=== PATIENT | female | born 1930 | race Caucasian/White ===

== ENCOUNTER 2016-10-24 18:29 | Inpatient (IN) | payer OTHER ==
[~2016-10-24] VITALS: Ht 154.9 cm; Wt 67.0 kg
[~2016-10-24 18:29] MED LIST: ALBU1AER9 INH; ANTICRE6; CLTP PO; FLUO20CA35 PO; HYZ/50125 PO; NASAL SPRAY; OMEG10007 PO; PRLSR20 PO; SIMV40TA2 PO
--- NOTE | 2016-10-24 19:19 | EMERGENCY ROOM VISIT NOTE ---
History Report prepared by Eunice: Andrew Alexis Under the Supervision of: Dr. Kiara Kincaid M.D. First contact with patient: 18:52 Chief Complaint: RECTAL BLEEDING Stated Complaint: LOW HEMOGLOBIN,RECTAL BLEEDING,DIZZY,WEAK Nursing Triage Summary: pt daughter states she was seen at urgent care on sunday, had bleeding in her stool, dizzy and weak, hemoglobin 11.7 , today seen at pcp hemoglobin is 8, pt continues to have blood in her stool, pt usually takes asa but didnt take it today History of Present Illness The patient is an 86 year old female who presents to the Emergency Room with complaints of persistent rectal bleeding beginning three days prior to arrival. She currently rates her discomfort as a 3/10 in severity. As per daughter, the patient experienced some pressure in her lower abdomen three days ago, followed by bright red blood in the toilet and then a loose bowel movement. The daughter denies there being blood in the stool at that time. She states the following day , the patient experienced darker "clotting" blood in her stool. The daughter notes she took the patient to [facility] two days ago, in which no hemorrhoids were identified, and the patient's hemoglobin was 11.7. She states the patient had a normal day yesterday, however, the dark red rectal bleeding occurred again this morning. The patient notes she had a regular doctor's appointment today, and her blood work revealed a hemoglobin of 8. She associates weakness, dizziness, and pressure in her rectum with today's symptoms. The patient states she was advised to go to the ED if the patient began to experience worsening symptoms. She notes she had a blood transfusion many years ago. The patient states she takes a baby aspirin once a day, as well. She denies being on blood thinners or taking any other anti- inflammatories. The patient denies chest pain and shortness of breath. 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 Review of Systems See HPI for pertinent positives & negatives. A total of 10 systems reviewed and were otherwise negative. Past Medical & Surgical Medical Problems: (1) Depression (2) Dyslipidemia (3) GERD (gastroesophageal reflux disease) (4) Hypertension (5) Osteoarthritis (6) Osteoporosis Surgical Problems: (1) H/O colonoscopy (2) History of breast lump/mass excision (3) History of cataract surgery (4) S/P tonsillectomy Family History Cancer Heart disease Hypertension Social History Smoking Status: Never Smoker Marital Status: Housing Status: lives with significant other Current/Historical Medications Scheduled Aspirin (Aspirin Ec), 81 MG PO DAILY Cranberry (Vaccinium Macrocarp (Cranberry), 1 CAP PO DAILY Fluoxetine (Prozac), 20 MG PO DAILY Omeprazole (Prilosec), 20 MG PO DAILY Scheduled PRN Fluticasone Propionate (Nasal) (Flonase Allergy Relief), 1 SPRAY CHLOÉ DAILY PRN for Nasal Congestion Allergies Coded Allergies: No Known Allergies (Unverified , 03/09/04) Physical Exam Vital Signs Date Time Temp Pulse Resp B/P Pulse Ox O2 Delivery O2 Flow Rate FiO2 10/24/16 20:27 85 18 153/70 98 Room Air 10/24/16 19:12 82 10/24/16 18:53 96 Room Air 10/24/16 18:52 89 18 138/82 95 Room Air 10/24/16 18:36 36.7 87 18 170/79 95 Room Air Physical Exam Vital signs reviewed. General: Well-appearing female, in no significant distress. HEENT: No scleral icterus, PERRLA, neck supple. Atraumatic. Cardiovascular: Regular rate and rhythm, no extra sounds. Pulmonary: Clear to auscultation bilaterally, normal work of breathing. Abdomen: Soft, nontender, nondistended, positive bowel sounds. Rectal: Melanotic stool. Normal rectal mucosa. Musculoskeletal: Atraumatic, no peripheral edema. Neurologic: Patient awake alert and oriented x 3, full strength in all 4 extremities. Cranial nerves 2 through 12 grossly intact. Skin: Warm, dry, no rash Medical Decision & Procedures ER Provider Diagnostic Interpretation: X-ray results as stated below per interpretation by me and the radiologist: CHEST ONE VIEW PORTABLE HISTORY: Dizziness. GIB, weakness COMPARISON: None. FINDINGS: The heart is borderline enlarged. Mild diffuse interstitial thickening which is likely chronic. No focal lung consolidations to suggest pneumonia. No evidence for pulmonary edema. No pleural effusions. No pneumothorax. IMPRESSION: Chronic changes as described above. No acute process within the chest. Electronically signed by: Wilson Canchola M.D. 10/24/2016 8:00 PM Laboratory Results Test 10/24/16 19:34 10/24/16 19:37 10/24/16 19:38 Bedside Troponin I 0.000 ng/ml (0-0.045) Bedside Hemoglobin 9.9 g/dl (12.0-16.0) Bedside Hematocrit 29 % (37-47) Bedside Sodium 143 mEq/L (135-144) Bedside Potassium 3.8 mEq/L (3.3-5.0) Bedside Chloride 103 mEq/L (101-112) Bedside Total CO2 29 mEq/l (24-31) Bedside Blood Urea Nitrogen 22 mg/dl (7-18) Bedside Creatinine 0.7 mg/dl (0.6-1.3) Bedside Glucose (other) 101 mg/dl (70-99) Bedside Ionized Calcium (Conchis) 1.18 mmol/l (1.12-1.32) Immature Granulocyte % (Auto) 0.2 % White Blood Count 5.83 K/uL (4.8-10.8) Red Blood Count 3.57 M/uL (4.2-5.4) Hemoglobin 9.2 g/dL (12.0-16.0) Hematocrit 29.0 % (37-47) Mean Corpuscular Volume 81.2 fL (80-100) Mean Corpuscular Hemoglobin 25.8 pg (25-34) Mean Corpuscular Hemoglobin Concent 31.7 g/dl (32-36) Platelet Count 237 K/uL (130-400) Mean Platelet Volume 9.5 fL (7.4-10.4) Neutrophils (%) (Auto) 64.3 % Lymphocytes (%) (Auto) 24.0 % Monocytes (%) (Auto) 8.4 % Eosinophils (%) (Auto) 2.9 % Basophils (%) (Auto) 0.2 % Neutrophils # (Auto) 3.75 K/uL (1.4-6.5) Lymphocytes # (Auto) 1.40 K/uL (1.2-3.4) Monocytes # (Auto) 0.49 K/uL (0.11-0.59) Eosinophils # (Auto) 0.17 K/uL (0-0.5) Basophils # (Auto) 0.01 K/uL (0-0.2) Immature Granulocyte # (Auto) 0.01 K/uL (0.00-0.02) Prothrombin Time 10.0 SECONDS (9.0-12.0) Prothromb Time International Ratio 0.9 (0.9-1.1) Activated Partial Thromboplast Time 22.6 SECONDS (21.0-31.0) Partial Thromboplastin Ratio 0.9 Magnesium Level 2.2 mg/dl (1.8-2.4) Iron Level 28 mcg/dl (35-150) Total Iron Binding Capacity 347 mcg/dl (250-450) Ferritin 14.0 ng/ml (8.0-388.0) Total Creatine Kinase 116 U/L (26-192) Creatine Kinase MB 2.6 ng/ml (0.5-3.6) Creatine Kinase MB Ratio 2.2 (0-3.0) Thyroid Stimulating Hormone (TSH) 2.290 uIu/ml (0.300-4.500) Laboratory results per my review. Medications Administered Medications (Trade) Dose Ordered Sig/Michelle Route Start Time Stop Time Status Last Admin Dose Admin Pantoprazole Sodium 80 mg/ Dextrose 120 ml @ 400 mls/hr NOW IV 10/24/16 20:15 10/24/16 22:02 DC 10/24/16 20:56 400 MLS/HR Sodium Chloride (Nss 1000ml) 1,000 ml @ 125 mls/hr Q8H STAT IV 10/24/16 20:18 10/24/16 22:02 DC 10/24/16 20:28 125 MLS/HR ECG Indication: other (rectal bleeding) Rate (beats per minute): 85 Rhythm: normal sinus Findings: no acute ischemic change, no ectopy ED Course 1951: Past medical records reviewed. The patient was evaluated in room C3. A complete history and physical examination was performed. 2015: Ordered Pantoprazole Sodium 80 mg/ Dextrose 120 ml @ 400 mls/hr IV. 2017: I spoke to Michelle Christopher (Internal Medicine) about the patient's case, and she will follow the patient for further evaluation. 2018: Ordered Sodium Chloride 1,000 ml @ 125 mls/hr IV. 2019: Reevaluated and updated the patient at this time. Medical Decision Differential diagnosis: Etiologies such as diverticulosis, AVM, coagulopathy, colitis, inflammatory bowel disease, malignancy, Xuan-Clinton tear, esophagitis, peptic ulcer disease , variceal bleed, gastritis, epistaxis, fissure, hemorrhoids, as well as others were entertained. This patient was evaluated and appeared to be in no significant distress. IV access was obtained and laboratory work was drawn. The patient was placed on the color television console monitor and found to be in a normal sinus rhythm. Physical examination reveals melanotic guaiac positive stools. The patient's blood counts revealed a hemoglobin of 9. Patient's vital signs have remained stable. She was given IV Protonix. CT scan of the abdomen and pelvis was ordered with IV and oral contrast. 2 units of PRBCs have been ordered to hold. I did discuss the case with the hospitalist service. They will evaluate the patient for further management. Consults Time Called: 2012 Consulting Physician: Michelle Christopher (Internal Medicine) Returned Call: 2016 I spoke to Michelle Christopher (Internal Medicine) about the patient's case, and she will follow the patient for further evaluation. Impression Primary Impression: GI bleed Scribe Attestation The scribe's documentation has been prepared under my direction and personally reviewed by me in its entirety. I confirm that the note above accurately reflects all work, treatment, procedures, and medical decision making performed by me. Departure Information Dispostion Being Evaluated By Hospitalist (Michelle Christopher (Internal Medicine)) Referrals No Doctor, Assigned (PCP) Problem Qualifiers Primary Impression: GI bleed GI bleed type/associated pathology: gastritis Gastritis type: acute gastritis Qualified Codes: K29.01 - Acute gastritis with bleeding
[2016-10-24 19:49] LABS: BASO % 0.2 %; BASO ABS # 0.01 K/uL (0-0.2); COMPLETE YES; EOS % 2.9 %; IG% 0.2 %; MEAN CELL VOLUME 81.2 fL (80-100); MEAN CORPUSCULAR HEMOGLOBIN 25.8 pg (25-34); MEAN CORPUSCULAR HGB CONC 31.7 g/dl (32-36); MEAN PLATELET VOLUME 9.5 fL (7.4-10.4); MONO % 8.4 %; NEUT % 64.3 %; PLATELET COUNT 237 K/uL (130-400); RED BLOOD COUNT 3.57 M/uL (4.2-5.4); WHITE BLOOD COUNT 5.83 K/uL (4.8-10.8)
[2016-10-24 19:51] LABS: ISTAT CREATININE 0.7 mg/dl (0.6-1.3); ISTAT HEMOGLOBIN 9.9 g/dl (12.0-16.0); ISTAT IONIZED CALCIUM 1.18 mmol/l (1.12-1.32)
[2016-10-24] MEDS ORDERED: ASPI81TA28 PO (19:56)
[2016-10-24] MEDS ORDERED: FLUT0.15 NAE (19:56)
[2016-10-24] MEDS ORDERED: CRAN500C2 PO (19:56)
[2016-10-24 19:59] LABS: INR 0.9 (0.9-1.1); PARTIAL THROMBOPLASTIN RATIO 0.9
--- NOTE | 2016-10-24 20:02 | DIAGNOSTIC IMAGING REPORT ---
CHEST ONE VIEW PORTABLE HISTORY: Dizziness. GIB, weakness COMPARISON: None. FINDINGS: The heart is borderline enlarged. Mild diffuse interstitial thickening which is likely chronic. No focal lung consolidations to suggest pneumonia. No evidence for pulmonary edema. No pleural effusions. No pneumothorax. IMPRESSION: Chronic changes as described above. No acute process within the chest. Electronically signed by: Wilson Canchola M.D. 10/24/2016 8:00 PM Dictated Date/Time: 10/24/2016 7:59 PM
[2016-10-24 20:08] LABS: CALCIUM 8.4 mg/dl (8.5-10.1); CREATININE 0.67 mg/dl (0.60-1.20); MAGNESIUM 2.2 mg/dl (1.8-2.4)
[2016-10-24 20:12] LABS: CKMB/CK RATIO 2.2 (0-3.0)
[2016-10-24] MEDS ORDERED: PANTOprazole INJ 80 MG in DEXTROSE 5% 100ML 100 ML IV SCH (20:15)
[2016-10-24] MEDS ORDERED: SODIUM CHLORIDE 0.9% 1000ML 1,000 ML IV STA (20:18)
[2016-10-24] MEDS ORDERED: OPTIRAY 320 IV PRN (20:30)
[2016-10-24 20:56] LABS: THYROID STIMULATING HORMONE 2.29 uIu/ml (0.300-4.500)
[2016-10-24] MEDS ORDERED: ONDANSETRON INJ 2 MG/ML 2 ML VIAL IV PRN (21:00)
[2016-10-24] MEDS ORDERED: FLUTICASONE PROPIONATE NA SPR 16 GM BTL NAE PRN (21:15)
--- NOTE | 2016-10-24 21:16 | History and Physical ---
History & Physical Date & Time of Service: Oct 24, 2016 at 21:04 Chief Complaint: Low Hemoglobin,Rectal Bleeding,Dizzy,Weak Primary Care Physician: Holden Thornton M.D. History of Present Illness Source: patient, family, clinic records, hospital records This is a healthy 86 year old female with past medical hx of Asthma/HTN presents to the Emergency Room with episodes of dark stool started 3 days back ( since Sat ) As per pt's daughter, pt was having pressure like symptoms /cramps in her lower abdomen three days ago, followed by bright red blood in the toilet and then a loose bowel movement. Daughter states the following day, the patient experienced darker "clotting" blood in her stool. [place] dizzy and weak Daughter took the patient to [facility] on Sunday Examination revealed no hemorrhoids were identified, patient's hemoglobin was 11.7. Pt was seen at [facility] today Hemoglobin is 8 pt continues to have blood in her stool, feels weakness, dizziness, and pressure in her rectum Pt was advised to go to the ED Patient takes a baby aspirin once a day Did not take her Aspirin today no prior hx of GI bleed not on any other blood thinners No recent intake of NSAID's ( except for aspirin 81 mg- 2 days back) The patient denies chest pain and shortness of breath. No nausea or vomiting pt remains hemodynamically stable Rectal exam in ED by ER attending shows melanotic stool in rectal volt vitals noted : Last 8 Hrs Date Time Temp Pulse Resp B/P Pulse Ox O2 Delivery O2 Flow Rate FiO2 10/24/16 20:27 85 18 153/70 98 Room Air 10/24/16 19:12 82 10/24/16 18:53 96 Room Air 10/24/16 18:52 89 18 138/82 95 Room Air 10/24/16 18:36 36.7 87 18 170/79 95 Room Air Past Medical/Surgical History Medical Problems: (1) Asthma Status: Chronic (2) Hypertension Status: Chronic Surgical Problems: (1) S/P tonsillectomy Status: Resolved Family History Cancer Heart disease Hypertension Social History Smoking Status: Never Smoker Marital Status: Multi-Drug Resistant Organisms History of MDRO: No Allergies Coded Allergies: No Known Allergies (Unverified , 03/09/04) Home Medications Scheduled Cranberry (Vaccinium Macrocarp (Cranberry), 1 CAP PO DAILY Fluoxetine (Prozac), 20 MG PO DAILY Omeprazole (Prilosec), 40 MG PO DAILY Scheduled PRN Fluticasone Propionate (Nasal) (Flonase Allergy Relief), 1 SPRAY CHLOÉ DAILY PRN for Nasal Congestion Review of Systems Constitutional: + fatigue, + weakness Respiratory: + shortness of breath Cardiovascular: + palpitations Abdomen: + GI bleeding, + diarrhea Genitourinary - Female: No dysmenorrhea, No dysuria, No hematuria, No menorrhagia, No metrorrhagia, No , No problem reported, No rash, No urinary frequency, No urinary incontinence, No urinary retention, No urinary urgency, No vaginal bleeding, No vaginal discharge, No vaginal itching, No vulvodynia Neurologic: + vertigo, + weakness Endocrine: + fatigue Physical Exam Vital Signs Date Time Temp Pulse Resp B/P Pulse Ox O2 Delivery O2 Flow Rate FiO2 10/24/16 20:27 85 18 153/70 98 Room Air 10/24/16 19:12 82 10/24/16 18:53 96 Room Air 10/24/16 18:52 89 18 138/82 95 Room Air 10/24/16 18:36 36.7 87 18 170/79 95 Room Air General Appearance: no apparent distress Head: normocephalic, atraumatic Eyes: sclerae normal Neck: supple Respiratory/Chest: lungs clear Cardiovascular: regular rate, rhythm Abdomen/GI: normal bowel sounds, non tender, soft Extremities/Musculoskelatal: normal capillary refill, no pedal edema Neurologic/Psych: alert, normal mood/affect, oriented x 3 Skin: no rash Diagnostics Laboratory Results Results Past 24 Hours Test 10/24/16 19:34 10/24/16 19:37 10/24/16 19:38 Range/Units Bedside Troponin I 0.000 0-0.045 ng/ml Bedside Hemoglobin 9.9 12.0-16.0 g/dl Bedside Hematocrit 29 37-47 % Bedside Sodium 143 135-144 mEq/L Bedside Potassium 3.8 3.3-5.0 mEq/L Bedside Chloride 103 101-112 mEq/L Bedside Total CO2 29 24-31 mEq/l Anion Gap 16.0 2.0 3-11 mmol/L Bedside Blood Urea Nitrogen 22 7-18 mg/dl Bedside Creatinine 0.7 0.6-1.3 mg/dl Bedside Glucose (other) 101 70-99 mg/dl Bedside Ionized Calcium (Conchis) 1.18 1.12-1.32 mmol/l White Blood Count 5.83 4.8-10.8 K/uL Red Blood Count 3.57 4.2-5.4 M/uL Hemoglobin 9.2 12.0-16.0 g/dL Hematocrit 29.0 37-47 % Mean Corpuscular Volume 81.2 80-100 fL Mean Corpuscular Hemoglobin 25.8 25-34 pg Mean Corpuscular Hemoglobin Concent 31.7 32-36 g/dl Platelet Count 237 130-400 K/uL Mean Platelet Volume 9.5 7.4-10.4 fL Neutrophils (%) (Auto) 64.3 % Lymphocytes (%) (Auto) 24.0 % Monocytes (%) (Auto) 8.4 % Eosinophils (%) (Auto) 2.9 % Basophils (%) (Auto) 0.2 % Neutrophils # (Auto) 3.75 1.4-6.5 K/uL Lymphocytes # (Auto) 1.40 1.2-3.4 K/uL Monocytes # (Auto) 0.49 0.11-0.59 K/uL Eosinophils # (Auto) 0.17 0-0.5 K/uL Basophils # (Auto) 0.01 0-0.2 K/uL RDW Standard Deviation 44.8 36.4-46.3 fL RDW Coefficient of Variation 15.0 11.5-14.5 % Immature Granulocyte % (Auto) 0.2 % Immature Granulocyte # (Auto) 0.01 0.00-0.02 K/uL Prothrombin Time 10.0 9.0-12.0 SECONDS Prothromb Time International Ratio 0.9 0.9-1.1 Activated Partial Thromboplast Time 22.6 21.0-31.0 SECONDS Partial Thromboplastin Ratio 0.9 Sodium Level 145 136-145 mmol/L Potassium Level 4.0 3.5-5.1 mmol/L Chloride Level 109 98-107 mmol/L Carbon Dioxide Level 34 21-32 mmol/L Blood Urea Nitrogen 22 7-18 mg/dl Creatinine 0.67 0.60-1.20 mg/dl Est Creatinine Clear Calc Drug Dose 52.7 ml/min Estimated GFR () 91.6 Estimated GFR (Non- 79.0 BUN/Creatinine Ratio 33.0 10-20 Random Glucose 94 70-99 mg/dl Calcium Level 8.4 8.5-10.1 mg/dl Magnesium Level 2.2 1.8-2.4 mg/dl Total Creatine Kinase 116 26-192 U/L Creatine Kinase MB 2.6 0.5-3.6 ng/ml Creatine Kinase MB Ratio 2.2 0-3.0 Thyroid Stimulating Hormone (TSH) 2.290 0.300-4.500 uIu/ml Diagnostic Radiology CT abdomen /pelvis - advanced colonic diverticulosis, No evidence of acute diverticulitis; mild R sided hydronephrosis 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, R kidney enhances homogenously ; mild nonspecific urothelial thickening and enhancement R renal pelvis; cholelithiasis CXR normal Normal EKG Impression Assessment and Plan RECTAL BLEEDING Possible upper GI bleed Noted to have melanotic stool in ER Prior colonoscopy normal in 2007 CT abdomen /pelvis - advanced colonic diverticulosis, No evidence of acute diverticulitis; mild R sided hydronephrosis 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 Thornton for primary care Level of Care Telemetry Resuscitation Status FULL RESUSCITATION VTE Prophylaxis VTE Risk Assessment Done? Y/N: Yes Risk Level: Moderate Given or contraindicated: Latisha Ha SCD's Note In my clinical judgment this beneficiary meets acute admission criteria, established by [facility], that includes being hospitalized through two midnights. Additional Copies To Holden Thornton M.D.
[2016-10-24] MEDS: PANTOprazole INJ 40 MG in DEXTROSE 5% 100ML IV SCH (22:30)
[2016-10-24 22:53] LABS: HEMATOCRIT 29.6 % (37-47)
[2016-10-24] MEDS ORDERED: LORAZEPAM INJ 0.5 MG in SYRINGE 0.25 ML IV PRN (23:15)
[2016-10-24 23:31] VITALS: Ht 154.9 cm; Wt 67.0 kg
[2016-10-24 23:32] VITALS: BP 168/75; PULSE 78; TEMP 36.4; O2SAT 94
[2016-10-24 23:38] VITALS: BP 160/68; PULSE 78; TEMP 36.9; O2SAT 94
[2016-10-25] VITALS (10 sets, daily range): BP systolic 128–161; BP diastolic 61–83; PULSE 77–89; TEMP 36.5–37; O2SAT 92–96
[2016-10-25] MEDS: PANTOprazole INJ 40 MG in DEXTROSE 5% 100ML IV SCH ×3 (04:07→12:27)
[2016-10-25 06:11] LABS: HEMATOCRIT 28.1 % (37-47); MEAN CELL VOLUME 81.2 fL (80-100); MEAN CORPUSCULAR HEMOGLOBIN 26.9 pg (25-34); MEAN CORPUSCULAR HGB CONC 33.1 g/dl (32-36); MEAN PLATELET VOLUME 9.6 fL (7.4-10.4); PLATELET COUNT 222 K/uL (130-400); RED BLOOD COUNT 3.46 M/uL (4.2-5.4)
[2016-10-25 06:36] LABS: BUN/CREATININE RATIO 18.4 (10-20); CALCIUM 8.2 mg/dl (8.5-10.1); CREATININE 0.69 mg/dl (0.60-1.20); POTASSIUM 3.8 mmol/L (3.5-5.1)
--- NOTE | 2016-10-25 07:15 | DIAGNOSTIC IMAGING REPORT ---
CT SCAN OF THE ABDOMEN AND PELVIS WITH IV CONTRAST CLINICAL HISTORY: Generalized abdominal pain. GI bleeding. COMPARISON STUDY: No priors. TECHNIQUE: Following the IV administration of 92 cc of Optiray 320, CT scan of the abdomen and pelvis is performed from the lung bases to the proximal femora. Images are reviewed in the axial, sagittal, and coronal planes. IV contrast was administered without complication. Automated dose control exposure was utilized. CT DOSE: 440.07 mGy.cm FINDINGS: Lung bases: The heart is mildly enlarged and without pericardial effusion. The lung bases are clear. A small hiatal hernia is noted. Liver: The contrast-enhanced liver is normal in size, contour, and attenuation. There is no intrahepatic biliary ductal dilatation. The hepatic veins and portal veins are patent. A 1.6 cm indeterminant low density subcapsular lesion is seen in the right lobe of the liver on image #96. Gallbladder: There are calcified gallstones. The gallbladder is otherwise normal in appearance. Spleen: Normal in size and attenuation. Pancreas: Unremarkable. Adrenal glands: Unremarkable. Kidneys: The contrast enhanced kidneys demonstrate cortical atrophy. There is mild right-sided hydronephrosis. No hydronephrosis on the left and the kidneys enhance symmetrically. There is a 1.5 cm cyst in the upper pole the right kidney. Urothelial thickening is noted in the right renal pelvis. Abdominal vasculature: The abdominal aorta is normal in course and caliber noting moderate atherosclerotic calcification. Bowel: The small bowel and colon are normal in course and caliber. There is advanced colonic diverticulosis without CT evidence of acute diverticulitis. The appendix is well-visualized and normal. Peritoneum: There is no intraperitoneal free air or abdominal ascites. Lymphadenopathy: None. Pelvic viscera: The bladder, uterus, and adnexa are normal as visualized. Skeletal structures: The skeletal structures are osteopenic. There is moderate lumbosacral spondylosis and scoliosis. No lytic or blastic lesions are seen. IMPRESSION: 1. There is advanced colonic diverticulosis without CT evidence of acute diverticulitis. 2. There is mild right-sided hydronephrosis. The right ureter is normal in caliber and this likely represents a mild UPJ type obstruction. The right kidney enhances homogeneously. 3. There is mild nonspecific urothelial thickening and enhancement in the right renal pelvis. Correlation with clinical findings and urinalysis will be required. 4. Cholelithiasis. 5. Additional changes as above. Electronically signed by: Rene Hickey M.D. 10/25/2016 7:12 AM Dictated Date/Time: 10/25/2016 7:06 AM
[2016-10-25 07:58] LABS: URINE APPEARANCE CLEAR (CLEAR); URINE BILIRUBIN NEG (NEG); URINE COLOR YELLOW; URINE NITRITE NEG (NEG); URINE SPECIFIC GRAVITY 1.038 (1.000-1.030); UROBILINOGEN NEG (NEG); ZZUR CULT IF INDIC CLEAN CATCH NO
[2016-10-25 07:59] LABS: MANUAL MICROSCOPIC REQUIRED? NO; REVIEW REQ? NO
--- NOTE | 2016-10-25 12:34 | Progress Note ---
Medicine Progress Note Date & Time of Visit: Oct 25, 2016 at 10:38. (Marija Lion PA-C) Subjective Patient seen and examined after being admitted overnight for rectal bleeding. Patient developed rectal bleeding 4 days ago starting with rectal cramping and loose stool with bright red blood. Since then continued with loose stools with red blood which yesterday turned to a dark tarry color. States overnight she had one dark liquid stool, then this morning had 1 light brown formed stool. She continues with fatigue and dizziness upon standing. She denies chest pain, shortness of breath, nausea, vomiting, abdominal pain, dysuria, frequency, urgency. She remains afebrile, hemodynamically stable, with stable hemoglobin since admission. (Marija Lion PA-C) Objective Last 8 Hrs Date Time Temp Pulse Resp B/P Pulse Ox O2 Delivery O2 Flow Rate FiO2 10/25/16 07:56 36.6 80 18 128/61 93 Room Air 10/25/16 05:09 36.5 89 18 149/72 93 Room Air 89 10/25/16 04:00 94 Room Air Physical Exam: General-pleasant alert 86 year old female, lying in bed, no acute distress Eyes-anicteric ENT-hearing intact Neck-trachea midline Lungs-CTA bilaterally, no crackles, rhonchi, wheezes, no respiratory distress Heart-RRR, no murmur Abdomen-soft, nontender, normal bowel sounds Extremities-no deformity, no edema or calf tenderness Neuro-alert and oriented x 3, affect normal, grossly nonfocal Laboratory Results: Last 24 Hours Test 10/24/16 19:34 10/24/16 19:37 10/24/16 19:38 10/24/16 22:20 Bedside Troponin I 0.000 ng/ml Bedside Hemoglobin 9.9 g/dl Bedside Hematocrit 29 % Bedside Sodium 143 mEq/L Bedside Potassium 3.8 mEq/L Bedside Chloride 103 mEq/L Bedside Total CO2 29 mEq/l Anion Gap 16.0 mmol/L 2.0 mmol/L Bedside Blood Urea Nitrogen 22 mg/dl Bedside Creatinine 0.7 mg/dl Bedside Glucose (other) 101 mg/dl Bedside Ionized Calcium (Conchis) 1.18 mmol/l White Blood Count 5.83 K/uL Red Blood Count 3.57 M/uL Hemoglobin 9.2 g/dL 9.3 g/dL Hematocrit 29.0 % 29.6 % Mean Corpuscular Volume 81.2 fL Mean Corpuscular Hemoglobin 25.8 pg Mean Corpuscular Hemoglobin Concent 31.7 g/dl Platelet Count 237 K/uL Mean Platelet Volume 9.5 fL Neutrophils (%) (Auto) 64.3 % Lymphocytes (%) (Auto) 24.0 % Monocytes (%) (Auto) 8.4 % Eosinophils (%) (Auto) 2.9 % Basophils (%) (Auto) 0.2 % Neutrophils # (Auto) 3.75 K/uL Lymphocytes # (Auto) 1.40 K/uL Monocytes # (Auto) 0.49 K/uL Eosinophils # (Auto) 0.17 K/uL Basophils # (Auto) 0.01 K/uL RDW Standard Deviation 44.8 fL RDW Coefficient of Variation 15.0 % Immature Granulocyte % (Auto) 0.2 % Immature Granulocyte # (Auto) 0.01 K/uL Prothrombin Time 10.0 SECONDS Prothromb Time International Ratio 0.9 Activated Partial Thromboplast Time 22.6 SECONDS Partial Thromboplastin Ratio 0.9 Sodium Level 145 mmol/L Potassium Level 4.0 mmol/L Chloride Level 109 mmol/L Carbon Dioxide Level 34 mmol/L Blood Urea Nitrogen 22 mg/dl Creatinine 0.67 mg/dl Est Creatinine Clear Calc Drug Dose 52.7 ml/min Estimated GFR () 91.6 Estimated GFR (Non- 79.0 BUN/Creatinine Ratio 33.0 Random Glucose 94 mg/dl Calcium Level 8.4 mg/dl Magnesium Level 2.2 mg/dl Iron Level 28 mcg/dl Total Iron Binding Capacity 347 mcg/dl Ferritin 14.0 ng/ml Total Creatine Kinase 116 U/L Creatine Kinase MB 2.6 ng/ml Creatine Kinase MB Ratio 2.2 Thyroid Stimulating Hormone (TSH) 2.290 uIu/ml Test 10/25/16 06:00 10/25/16 07:40 White Blood Count 6.60 K/uL Red Blood Count 3.46 M/uL Hemoglobin 9.3 g/dL Hematocrit 28.1 % Mean Corpuscular Volume 81.2 fL Mean Corpuscular Hemoglobin 26.9 pg Mean Corpuscular Hemoglobin Concent 33.1 g/dl RDW Standard Deviation 44.9 fL RDW Coefficient of Variation 15.2 % Platelet Count 222 K/uL Mean Platelet Volume 9.6 fL Sodium Level 143 mmol/L Potassium Level 3.8 mmol/L Chloride Level 107 mmol/L Carbon Dioxide Level 31 mmol/L Anion Gap 5.0 mmol/L Blood Urea Nitrogen 13 mg/dl Creatinine 0.69 mg/dl Est Creatinine Clear Calc Drug Dose 51.5 ml/min Estimated GFR () 90.7 Estimated GFR (Non- 78.3 BUN/Creatinine Ratio 18.4 Random Glucose 106 mg/dl Calcium Level 8.2 mg/dl Urine Color YELLOW Urine Appearance CLEAR Urine pH 6.0 Urine Specific [place] 1.038 Urine Protein NEG Urine Glucose (UA) NEG Urine Ketones NEG Urine Occult Blood NEG Urine Nitrite NEG Urine Bilirubin NEG Urine Urobilinogen NEG Urine Leukocyte Esterase NEG (Marija Lion, MIRZA) Assessment & Plan RECTAL BLEEDING Possible upper GI bleed Noted to have melanotic stool in ER Prior colonoscopy normal in 2007 CT a/p- advanced colonic diverticulosis, No evidence of acute diverticulitis; mild R sided hydronephrosis 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 Thornton for primary care Patient seen in collaboration with Dr. Israel. Please see his addendum. Current Inpatient Medications: Current Inpatient Medications Medications (Trade) Dose Ordered Sig/Michelle Route Start Time Stop Time Status Last Admin Dose Admin Ioversol (Optiray 320) 100 ml UD PRN IV 10/24/16 20:30 10/28/16 20:29 Ondansetron HCl (Zofran Inj) 4 mg Q6H PRN IV 10/24/16 21:00 11/23/16 20:59 Fluticasone Propionate 1 sprays 1 sprays DAILY PRN CHLOÉ 10/24/16 21:15 11/23/16 21:14 Pantoprazole Sodium 40 mg/ Dextrose 100 ml @ 20 mls/hr Q5H IV 10/24/16 22:30 11/23/16 22:29 10/25/16 07:49 20 MLS/HR Lorazepam/Syringe (Ativan Inj/ Syringe) 0.5 ml @ 0.5 mls/min Q6H PRN IV 10/24/16 23:15 11/23/16 23:14 10/25/16 00:30 0.5 MLS/MIN (Marija Lion PA-C) ATTENDING ADDENDUM delayed entry date of service 10/25/16 care coordinated with ARIANNE Lion please refer to her notes for full details, I agree with her notes patient seen and examined, records reviewed by myself as well on exam, patient seen resting in bed, states she feels fine overall denies melena/hematochezia, abdominal pain no chest pain, dyspnea, palpitations, dizziness no other symptoms VS noted and reviewed oriented x 3 , not in distress, speaks in sentences with no effort nor accessory muscle use normal rate, regular rhythm, no murmurs clear breath sounds bilaterally non distended, soft, nontender no bipedal edema, erythema, warmth no neuro deficits Hg 9.3 Crea 0.69 ASSESSMENT/PLAN> ACUTE BLOOD LOSS ANEMIA POSSIBLE GI BLEED - Hg stable - asymptomatic - GI consulted ELEVATED BP asymptomatic monitor other diagnoses and plan of care as per ARIANNE Lion's notes Ceferino Israel MD (Ceferino Israel MD)
--- NOTE | 2016-10-25 13:57 | Gastrointestinal Consultation ---
Gastrointestinal Consultation Date of Consultation: Oct 25, 2016 Attending Physician: Ceferino Israel Consulting Physician: Reinaldo Dent Reason for Consultation: Melanotic stool History of Present Illness Patient is a 86 year old female w PMHx of asthma, HTN, osteoporosis, cholelithiasis, esophagitis, dyslipidemia who presented to ED w c/o rectal bleeding since Sunday. Sunday evening, she felt the urge to defecate and when she does, saw bright red blood out of rectum. She felt some lower abd mild cramping at that time as well, but no n/v. She proceeded to have 2 additional bloody BMs on Sunday. Her daughter eventually took her to [facility] on 10/22/16, Hgb noted to be 11.7, usually 13. She followed up w Dr. Thornton, her PCP on , repeat CBC showed Hgb of 9. She continues to have stools w clots, and dark tarry color up to yesterday and thus decided to come to ED for eval. She was also feeling a bit weak and lightheaded. Denies any CP, SOB, continued or worsen abd pain She was noted to have H/H of 9.3/28.1 on admission. She is on ASA 81mg daily at home but not on anticoagulants. INR 0.9. Iron studies revealed low iron at 28 otherwise normal. She had CXR unremarkable. CT abd/pelvis showed diverticulosis and mild R hydronephrosis otherwise unremarkable. No signs of bowel wall thickening or edema. Energy improved, not as weak. She reported 2 more episodes of BMs after CT w contrast intake yesterday. First one was w dark colored stools but this AM stool color went back to normal. She denies any sick contact or antibx uses. She does admit to take Ibuprofen up to 2 tabs on daily basis for DE PAZ. No significant weight loss, though lost about 9 lbs in last 3 years after caring for her 95 y/o . Pt's last colonoscopy was in 2007 - diverticulosis, tortuous colon. Mother did have hx of colon ca. Past Medical/Surgical History Medical Problems: (1) GI bleed Status: Acute Past Medical History: See HPI Past Surgical History: Tonsillectomy Family History Cancer Heart disease Hypertension Social History Smoking Status: Former Smoker Alcohol Use: none Drug Use: none Marital Status: Housing Status: lives with significant other Allergies Coded Allergies: No Known Allergies (Unverified , 03/09/04) Current Medications Home Meds and Scripts Medications Dose Route/Sig Max Daily Dose Days Date Category Flonase Allergy Relief (Fluticasone Propionate (Nasal)) 50 Mcg/Act Spr 1 [place] CHLOÉ DAILY PRN 10/24/16 Reported Cranberry (Cranberry (Vaccinium Macrocarp) 500 Mg Cap 1 Cap PO DAILY 10/24/16 Reported Aspirin Ec (Aspirin) 81 Mg Tab 81 Mg PO DAILY 10/24/16 Reported Prozac (Fluoxetine HCl) 20 Mg Cap 20 Mg PO DAILY 12/16/08 Reported Prilosec (Omeprazole) 20 Mg Capcr 20 Mg PO DAILY 12/16/08 Reported Review of Systems Constitutional: No chills, No fever, No weakness Respiratory: No cough, No shortness of breath Cardiac: No chest pain, No edema Abdomen: + pain (mild lower abd cramping but this has resolved. ), No nausea Skin: No itch, No jaundice, No rash Physical Exam Date Time Temp Pulse Resp B/P Pulse Ox O2 Delivery O2 Flow Rate FiO2 10/25/16 12:00 Room Air 10/25/16 11:40 36.8 77 18 161/77 95 Room Air 10/25/16 08:00 Room Air 10/25/16 07:56 36.6 80 18 128/61 93 Room Air 10/25/16 05:09 36.5 89 18 149/72 93 Room Air 89 10/25/16 04:00 94 Room Air 10/24/16 23:38 36.9 78 18 160/68 94 Room Air 10/24/16 23:32 36.4 78 18 168/75 94 Room Air 10/24/16 21:38 82 18 148/73 96 Room Air 10/24/16 20:27 85 18 153/70 98 Room Air 10/24/16 19:12 82 10/24/16 18:53 96 Room Air 10/24/16 18:52 89 18 138/82 95 Room Air 10/24/16 18:36 36.7 87 18 170/79 95 Room Air General Appearance: WD/WN, no apparent distress Eyes: normal inspection, PERRL, EOMI Neck: supple, no JVD, trachea midline Respiratory/Chest: normal breath sounds, no respiratory distress, no accessory muscle use Cardiovascular: regular rate, rhythm, no gallop, no murmur Abdomen: normal bowel sounds, non tender, soft, + pertinent finding (Rectal exam: ext/int hemorrhoids are non thrombosed, no signs of fissures. ) Extremities: normal inspection, no pedal edema, no calf tenderness Neurologic/Psych: alert, normal mood/affect, oriented x 3 Skin: normal color, no jaundice, no rash Laboratory Results Last 24 Hours Test 10/24/16 19:34 10/24/16 19:37 10/24/16 19:38 10/24/16 22:20 Bedside Troponin I 0.000 ng/ml Bedside Hemoglobin 9.9 g/dl Bedside Hematocrit 29 % Bedside Sodium 143 mEq/L Bedside Potassium 3.8 mEq/L Bedside Chloride 103 mEq/L Bedside Total CO2 29 mEq/l Anion Gap 16.0 mmol/L 2.0 mmol/L Bedside Blood Urea Nitrogen 22 mg/dl Bedside Creatinine 0.7 mg/dl Bedside Glucose (other) 101 mg/dl Bedside Ionized Calcium (Conchis) 1.18 mmol/l White Blood Count 5.83 K/uL Red Blood Count 3.57 M/uL Hemoglobin 9.2 g/dL 9.3 g/dL Hematocrit 29.0 % 29.6 % Mean Corpuscular Volume 81.2 fL Mean Corpuscular Hemoglobin 25.8 pg Mean Corpuscular Hemoglobin Concent 31.7 g/dl Platelet Count 237 K/uL Mean Platelet Volume 9.5 fL Neutrophils (%) (Auto) 64.3 % Lymphocytes (%) (Auto) 24.0 % Monocytes (%) (Auto) 8.4 % Eosinophils (%) (Auto) 2.9 % Basophils (%) (Auto) 0.2 % Neutrophils # (Auto) 3.75 K/uL Lymphocytes # (Auto) 1.40 K/uL Monocytes # (Auto) 0.49 K/uL Eosinophils # (Auto) 0.17 K/uL Basophils # (Auto) 0.01 K/uL RDW Standard Deviation 44.8 fL RDW Coefficient of Variation 15.0 % Immature Granulocyte % (Auto) 0.2 % Immature Granulocyte # (Auto) 0.01 K/uL Prothrombin Time 10.0 SECONDS Prothromb Time International Ratio 0.9 Activated Partial Thromboplast Time 22.6 SECONDS Partial Thromboplastin Ratio 0.9 Sodium Level 145 mmol/L Potassium Level 4.0 mmol/L Chloride Level 109 mmol/L Carbon Dioxide Level 34 mmol/L Blood Urea Nitrogen 22 mg/dl Creatinine 0.67 mg/dl Est Creatinine Clear Calc Drug Dose 52.7 ml/min Estimated GFR () 91.6 Estimated GFR (Non- 79.0 BUN/Creatinine Ratio 33.0 Random Glucose 94 mg/dl Calcium Level 8.4 mg/dl Magnesium Level 2.2 mg/dl Iron Level 28 mcg/dl Total Iron Binding Capacity 347 mcg/dl Ferritin 14.0 ng/ml Total Creatine Kinase 116 U/L Creatine Kinase MB 2.6 ng/ml Creatine Kinase MB Ratio 2.2 Thyroid Stimulating Hormone (TSH) 2.290 uIu/ml Test 10/25/16 06:00 10/25/16 07:40 White Blood Count 6.60 K/uL Red Blood Count 3.46 M/uL Hemoglobin 9.3 g/dL Hematocrit 28.1 % Mean Corpuscular Volume 81.2 fL Mean Corpuscular Hemoglobin 26.9 pg Mean Corpuscular Hemoglobin Concent 33.1 g/dl RDW Standard Deviation 44.9 fL RDW Coefficient of Variation 15.2 % Platelet Count 222 K/uL Mean Platelet Volume 9.6 fL Sodium Level 143 mmol/L Potassium Level 3.8 mmol/L Chloride Level 107 mmol/L Carbon Dioxide Level 31 mmol/L Anion Gap 5.0 mmol/L Blood Urea Nitrogen 13 mg/dl Creatinine 0.69 mg/dl Est Creatinine Clear Calc Drug Dose 51.5 ml/min Estimated GFR () 90.7 Estimated GFR (Non- 78.3 BUN/Creatinine Ratio 18.4 Random Glucose 106 mg/dl Calcium Level 8.2 mg/dl Urine Color YELLOW Urine Appearance CLEAR Urine pH 6.0 Urine Specific [place] 1.038 Urine Protein NEG Urine Glucose (UA) NEG Urine Ketones NEG Urine Occult Blood NEG Urine Nitrite NEG Urine Bilirubin NEG Urine Urobilinogen NEG Urine Leukocyte Esterase NEG Impression Patient is a 86 year old female w initially BRBPR, and then had darker colored stools w clots, anemia w Hgb down to 9, baseline 13. She only has mild lower abd cramping when her rectal bleeding started none now. CT w signs of diverticulosis but no other acute pathology indicating colitis or diverticulitis. Her last BM this AM had returned back to normal color. H/H stable since admission w Hgb around 9. Suspect she likely has diverticular bleed. Other differential dx include: infectious colitis, hemorrhoidal bleed, AVM bleeding, PUD given hx of ASA and Ibuprofen uses. Plan - Monitor H/H and transfuse PRN - Advanced to CL diet, may advance as tolerated - Discussed w pt about possible EGD to r/o PUD, and colonoscopy evals. She prefers to be discharged as soon as possible but agreeable for another night's stay to observe her clinical course. She is also agreeable to eventual outpt endoscopic workup I have seen examined and agree with history as above of Ms. Angélica Hadley -Painless rectal bleeding without hemodynamic compromise -would like to defer endo at this time -historically does not appear consistent with UGI source, but if has further bleeding will plan on EGD in the am
[2016-10-25 15:01] LABS: HEMATOCRIT 28.3 % (37-47)
[2016-10-25] MEDS: PANTOprazole INJ 40 MG in SYRINGE 0 ML IV SCH (20:15)
[2016-10-25 22:39] LABS: HEMATOCRIT 31.4 % (37-47)
[2016-10-26] VITALS (7 sets, daily range): BP systolic 150–172; BP diastolic 65–81; PULSE 83–86; TEMP 36.7–36.8; O2SAT 92–94
[2016-10-26 06:07] LABS: HEMATOCRIT 30.4 % (37-47); MEAN CELL VOLUME 81.7 fL (80-100); MEAN CORPUSCULAR HEMOGLOBIN 26.1 pg (25-34); MEAN CORPUSCULAR HGB CONC 31.9 g/dl (32-36); PLATELET COUNT 260 K/uL (130-400); RED BLOOD COUNT 3.72 M/uL (4.2-5.4); WHITE BLOOD COUNT 6.33 K/uL (4.8-10.8)
[2016-10-26] MEDS: PANTOprazole INJ 40 MG in SYRINGE 0 ML IV SCH (08:28)
--- NOTE | 2016-10-26 08:46 | Gastroenterology Progress Note ---
Progress Note Date of Service: Oct 26, 2016 Subjective Pt evaluation today including: conversation w/ patient, physical exam, chart review, lab review, review of inpatient medication list Pt denies any more bloody BMs. Last BM yesterday afternoon normal color per her report. She denies any abd pain, n/v. Tolerated CL diet well. Denies any fever, chills, CP, SOB, light headedness. Asking for DC home today. Review of Systems Constitutional: No chills, No fever Respiratory: No cough, No shortness of breath Cardiac: No chest pain, No edema Abdomen: No GI bleeding, No nausea, No pain, No vomiting Medications Current Inpatient Medications Medications (Trade) Dose Ordered Sig/Michelle Route Start Time Stop Time Status Last Admin Dose Admin Ioversol (Optiray 320) 100 ml UD PRN IV 10/24/16 20:30 10/28/16 20:29 Ondansetron HCl (Zofran Inj) 4 mg Q6H PRN IV 10/24/16 21:00 11/23/16 20:59 Fluticasone Propionate 1 sprays 1 sprays DAILY PRN CHLOÉ 10/24/16 21:15 11/23/16 21:14 Lorazepam 0.5 mg/ Syringe 0.5 ml @ 0.5 mls/min Q6H PRN IV 10/24/16 23:15 11/23/16 23:14 10/25/16 00:30 0.5 MLS/MIN Pantoprazole Sodium/Syringe (Protonix Inj/ Syringe) 10 ml @ 5 mls/min DAILY@09,21 IV 10/25/16 21:00 11/24/16 20:59 10/26/16 08:28 5 MLS/MIN Objective Vital Signs Date Time Temp Pulse Resp B/P Pulse Ox O2 Delivery O2 Flow Rate FiO2 10/26/16 07:43 36.7 84 18 166/81 92 Room Air 10/26/16 04:00 36.8 83 20 172/73 92 Room Air 10/26/16 04:00 94 Room Air 10/26/16 00:00 94 Room Air 10/25/16 23:22 36.9 85 18 152/79 92 Room Air 10/25/16 20:00 94 Room Air 10/25/16 19:55 37.0 82 16 136/71 94 Room Air 82 10/25/16 16:00 94 Room Air 10/25/16 15:13 36.7 78 16 145/74 94 Room Air 10/25/16 13:18 81 96 10/25/16 12:00 Room Air 10/25/16 11:40 36.8 77 18 161/77 95 Room Air Physical Exam General Appearance: WD/WN, no apparent distress Eyes: normal inspection, PERRL, EOMI Neck: supple, no JVD, trachea midline Respiratory/Chest: normal breath sounds, no respiratory distress, no accessory muscle use Cardiovascular: regular rate, rhythm, no gallop, no murmur Abdomen: normal bowel sounds, non tender, soft Extremities: normal inspection, no pedal edema, no calf tenderness Neurologic/Psych: alert, normal mood/affect, oriented x 3 Skin: normal color, no jaundice, no rash Laboratory Results Last 24 Hours Test 10/25/16 14:20 10/25/16 22:15 10/26/16 05:09 Hemoglobin 9.1 g/dL 9.7 g/dL 9.7 g/dL Hematocrit 28.3 % 31.4 % 30.4 % White Blood Count 6.33 K/uL Red Blood Count 3.72 M/uL Mean Corpuscular Volume 81.7 fL Mean Corpuscular Hemoglobin 26.1 pg Mean Corpuscular Hemoglobin Concent 31.9 g/dl RDW Standard Deviation 44.6 fL RDW Coefficient of Variation 15.0 % Platelet Count 260 K/uL Mean Platelet Volume 10.0 fL Assessment and Plan Impression Patient is a 86 year old female w initially BRBPR, and then had darker colored stools w clots, anemia w Hgb down to 9, baseline 13. She only has mild lower abd cramping when her rectal bleeding started none now. CT w signs of diverticulosis but no other acute pathology indicating colitis or diverticulitis. Her last BM this AM had returned back to normal color. H/H stable since admission w Hgb around 9. Suspect she likely has diverticular bleed. Other differential dx include: infectious colitis, hemorrhoidal bleed, AVM bleeding, PUD given hx of ASA and Ibuprofen uses. Pt continues to have normal colored BMs till yesterday afternoon. H/H improving. No abd pain, n/v. Likely diverticular bleeding. Plan - Advanced to Regular diet. - OK for DC from GI standpoint. - Discussed w Dr. Dent : No plans for future endoscopy as likely she has diverticular bleeding which is self limited. Would recommend her to avoid NSAIDs if possible - she's been taking Ibuprofen on daily basis as well as ASA. F/U w PCP and if any more GI bleeding episode or abd pain, n/v symptoms may refer back to GI clinic for endoscopic evals. I have seen examined and agree with the plan as outlined above by COLIN Wolff. -No signs of bleeding, patient wants to go home, fine with soon outpatient eval
--- NOTE | 2016-10-26 12:54 | Clinical Documentation Query ---
LEANNA COOPER : CLINICAL DOCUMENTATION QUERY Patient is an 86 year old female who presented with BRBPR. Hemoglobin down to about 9 g/dl with a baseline of about 13 g/dl. She has been seen in consultation by GI and monitored with serial H/H. Bleeding assumed to be diverticular in nature. In your clinical opinion is this patient being managed for: ( x ) Acute blood loss anemia ( ) Other explanation of clinical findings (Please Explain) ( ) Unable to determine (Please Define) ( ) Need to Discuss ( ) Not Agree The medical record reflects the following clinical findings, treatment, and risk factors. Clinical Indicators: Treatment: She has been seen in consultation by GI and monitored with serial H/H, avoid NSAID Risk Factors: Age, ASA, diverticulosis Please clarify and document your clinical opinion in the progress notes and discharge summary. Terms such as "probable", "suspected", "likely", "questionable", "possible", or "still to be ruled out" are acceptable. IF IN AGREEMENT, YOU MUST DOCUMENT ABOVE DIAGNOSTIC STATEMENT IN DAILY PROGRESS NOTES AND DISCHARGE SUMMARY. This document is not part of the patient's record. Thank You, Mj Davalos, RN [phone]
--- NOTE | 2016-10-26 12:56 | Clinical Documentation Query ---
CHACORTA Byrd : CLINICAL DOCUMENTATION QUERY Patient is an 86 year old female who presented with BRBPR. Hemoglobin down to about 9 g/dl with a baseline of about 13 g/dl. She has been seen in consultation by GI and monitored with serial H/H. Bleeding assumed to be diverticular in nature. In your clinical opinion is this patient being managed for: ( x) Acute blood loss anemia ( ) Other explanation of clinical findings (Please Explain) ( ) Unable to determine (Please Define) ( ) Need to Discuss ( ) Not Agree The medical record reflects the following clinical findings, treatment, and risk factors. Clinical Indicators: Treatment: She has been seen in consultation by GI and monitored with serial H/H, avoid NSAID Risk Factors: Age, ASA, diverticulosis Please clarify and document your clinical opinion in the progress notes and discharge summary. Terms such as "probable", "suspected", "likely", "questionable", "possible", or "still to be ruled out" are acceptable. IF IN AGREEMENT, YOU MUST DOCUMENT ABOVE DIAGNOSTIC STATEMENT IN DAILY PROGRESS NOTES AND DISCHARGE SUMMARY. This document is not part of the patient's record. Thank You, Mj Davalos, RN [phone]
--- NOTE | 2016-10-26 13:24 | Progress Note ---
Medicine Progress Note Date & Time of Visit: Oct 26, 2016 at 10:51. (Marija Lion PA-C) Subjective Patient seen and examined. States she is feeling well this morning. Denies any further rectal bleeding. Last BM was normal brown formed yesterday morning. She tolerated regular breakfast today. States energy level is improving and tolerated ambulating in hallway with PT yesterday and around the room today. Denies dizziness, chest pain, SOB, abdominal pain, N/V, voiding difficultly. (Marija Lion PA-C) Objective Last 8 Hrs Date Time Temp Pulse Resp B/P Pulse Ox O2 Delivery O2 Flow Rate FiO2 10/26/16 07:43 36.7 84 18 166/81 92 Room Air 10/26/16 04:00 36.8 83 20 172/73 92 Room Air 10/26/16 04:00 94 Room Air Physical Exam: General- very pleasant alert 86 year old female, lying in bed, no acute distress Eyes-anicteric ENT-hearing intact Neck-trachea midline Lungs-CTA bilaterally, no crackles, rhonchi, wheezes, no respiratory distress Heart-RRR, no murmur Abdomen-soft, nontender, normal bowel sounds Extremities-no deformity, no edema or calf tenderness Neuro-alert and oriented x 3, affect normal, strength 5/5 all extremities Laboratory Results: Last 24 Hours Test 10/25/16 14:20 10/25/16 22:15 10/26/16 05:09 Hemoglobin 9.1 g/dL 9.7 g/dL 9.7 g/dL Hematocrit 28.3 % 31.4 % 30.4 % White Blood Count 6.33 K/uL Red Blood Count 3.72 M/uL Mean Corpuscular Volume 81.7 fL Mean Corpuscular Hemoglobin 26.1 pg Mean Corpuscular Hemoglobin Concent 31.9 g/dl RDW Standard Deviation 44.6 fL RDW Coefficient of Variation 15.0 % Platelet Count 260 K/uL Mean Platelet Volume 10.0 fL (Marija Lion PA-C) Assessment & Plan RECTAL BLEEDING Likely lower GI bleeding due to diverticular bleed; upper GI bleed due to PUD considered especially given ASA and ibuprofen use Presented with initial red blood per rectum then melena Noted to have melanotic stool in ER -> no further bleeding in past 24 hours Hg had decreased from 11's-8's as outpatient; improving since admission (9.2-> 9.7) Afebrile; no leukocytosis, has remained hemodynamically stable Prior colonoscopy normal in 2007 CT a/p- advanced colonic diverticulosis, No evidence of acute diverticulitis; mild R sided hydronephrosis 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 diff ordered- not obtained as patient had no further BM Tolerating regular diet Was on IV PPI during hospitalization; will be d/c on omeprazole GI consulted; appreciate input; OK for discharge from GI standpoint No plan for endoscopy at this point; would refer back to GI if develops recurrent bleeding, abdominal pain, N/V Continue to hold aspirin until PCP follow up; pt on ASA for hx of possible TIA Advised to avoid NSAIDs HYPERTENSION BP is moderately elevated intermittently throughout hospitalization Known hx of HTN; not on medication at home As outpatient SBP runs mostly in 120s-130s with occasional elevation to ~150 Monitor BP as outpatient MILD R HYDRONEPHROSIS CT a/p showed mild R sided hydronephrosis 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 Thornton for SundayOctober 30 Patient seen in collaboration with Dr. Israel. Please see his addendum. Current Inpatient Medications: Current Inpatient Medications Medications (Trade) Dose Ordered Sig/Michelle Route Start Time Stop Time Status Last Admin Dose Admin Ioversol (Optiray 320) 100 ml UD PRN IV 10/24/16 20:30 10/28/16 20:29 Ondansetron HCl (Zofran Inj) 4 mg Q6H PRN IV 10/24/16 21:00 11/23/16 20:59 Fluticasone Propionate 1 sprays 1 sprays DAILY PRN CHLOÉ 10/24/16 21:15 11/23/16 21:14 Lorazepam 0.5 mg/ Syringe 0.5 ml @ 0.5 mls/min Q6H PRN IV 10/24/16 23:15 11/23/16 23:14 10/25/16 00:30 0.5 MLS/MIN Pantoprazole Sodium/Syringe (Protonix Inj/ Syringe) 10 ml @ 5 mls/min DAILY@09,21 IV 10/25/16 21:00 11/24/16 20:59 10/26/16 08:28 5 MLS/MIN (Marija Lion PA-C) ATTENDING ADDENDUM delayed entry date of service 10/26/16 care coordinated with ARIANNE Lion please refer to her notes for full details, I agree with her notes patient seen and examined, records reviewed by myself as well on exam, patient seen resting in bedside chair, feels ok overall back to baseline per patient no dyspnea, dizziness, chest pain no other symptoms VS noted and reviewed oriented x 3 , not in distress, speaks in sentences with no effort nor accessory muscle use normal rate, regular rhythm, no murmurs clear breath sounds bilaterally, no rales non distended, normal BS< soft, nontender no bipedal edema, erythema, warmth no neuro deficits Hg 9.7 ASSESSMENT/PLAN> ACUTE BLOOD LOSS ANEMIA POSSIBLE DIVERTICULAR BLEED - Hg stable - asymptomatic - GI consulted, no plans for intervention hold Aspirin ELEVATED BP asymptomatic monitor other diagnoses and plan of care as per ARIANNE Lion's notes Ceferino Israel MD (Ceferino Israel MD)
--- NOTE | 2016-10-26 13:25 | Discharge Instructions ---
Discharge Instructions Date of Service Oct 26, 2016. Admission Reason for Admission: Gi Bleed Discharge Discharge Diagnosis / Problem: GI bleed Discharge Goals Goal(s): Decrease discomfort, Diagnostic testing, Therapeutic intervention Activity Recommendations Activity Limitations: as noted below (gradually increase activity as tolerated) . Instructions / Follow-Up Instructions / Follow-Up Please take all medications as prescribed. Please do not take baby aspirin until otherwise advised by your primary care doctor. Please avoid taking any NSAID's (Non-Steroidal Anti-Inflammatory Drug) including ibuprofen. Call Primary Care Physician or return to ER immediately if with recurrence of symptoms You have a follow up appointment with Dr. Thornton in [place] on SundayOctober 30 at 9:40 am. It was a pleasure taking care of you! Call if you have any questions or problems. You can reach a [facility] hospitalist on duty at [facility] 24 hours a day by calling [phone]. Take care of yourself. Marija Lion PA-C [facility] Hospitalist Current Hospital Diet Patient's current hospital diet: Regular Diet Discharge Diet Recommended Diet: AHA Diet (Heart Healthy) (Please avoid nuts and seeds. ) Pending Studies Studies pending at discharge: yes List of pending studies: Repeat Bloodwork: CBC on follow up with Primary Care Physician Medical Emergencies . Who to Call and When: Medical Emergencies: If at any time you feel your situation is an emergency, please call 911 immediately. . Non-Emergent Contact Non-Emergency issues call your: Primary Care Provider Call Non-Emergent contact if: you have a fever, you have any medication questions . Past History Medical & Surgical History: (1) Hypertension (2) GI bleed (3) Depression (4) Dyslipidemia (5) Osteoarthritis (6) GERD (gastroesophageal reflux disease) (7) Osteoporosis (8) History of breast lump/mass excision (9) History of cataract surgery (10) H/O colonoscopy . "Provider Documentation" section prepared by Marija Lion. VTE Core Measure Inpt VTE Proph given/why not?: Latisha Ha, SCD's
[2016-10-26] MEDS ORDERED: OMEP40CA41 PO (13:29)
--- NOTE | 2016-10-26 15:27 | Discharge Summary ---
Discharge Summary Date of Service Oct 26, 2016. Discharge Summary Admission Date: Oct 24, 2016 at 20:50 Discharge Date: Oct 26, 2016 Discharge Disposition: Home Principal Diagnosis: GI bleed Secondary Diagnoses/Problems: Hypertension Mild R hydronephrosis Depression Procedures: CT SCAN OF THE ABDOMEN AND PELVIS WITH IV CONTRAST CLINICAL HISTORY: Generalized abdominal pain. GI bleeding. COMPARISON STUDY: No priors. TECHNIQUE: Following the IV administration of 92 cc of Optiray 320, CT scan of the abdomen and pelvis is performed from the lung bases to the proximal femora. Images are reviewed in the axial, sagittal, and coronal planes. IV contrast was administered without complication. Automated dose control exposure was utilized. CT DOSE: 440.07 mGy.cm FINDINGS: Lung bases: The heart is mildly enlarged and without pericardial effusion. The lung bases are clear. A small hiatal hernia is noted. Liver: The contrast-enhanced liver is normal in size, contour, and attenuation. There is no intrahepatic biliary ductal dilatation. The hepatic veins and portal veins are patent. A 1.6 cm indeterminant low density subcapsular lesion is seen in the right lobe of the liver on image #96. Gallbladder: There are calcified gallstones. The gallbladder is otherwise normal in appearance. Spleen: Normal in size and attenuation. Pancreas: Unremarkable. Adrenal glands: Unremarkable. Kidneys: The contrast enhanced kidneys demonstrate cortical atrophy. There is mild right-sided hydronephrosis. No hydronephrosis on the left and the kidneys enhance symmetrically. There is a 1.5 cm cyst in the upper pole the right kidney. Urothelial thickening is noted in the right renal pelvis. Abdominal vasculature: The abdominal aorta is normal in course and caliber noting moderate atherosclerotic calcification. Bowel: The small bowel and colon are normal in course and caliber. There is advanced colonic diverticulosis without CT evidence of acute diverticulitis. The appendix is well-visualized and normal. Peritoneum: There is no intraperitoneal free air or abdominal ascites. Lymphadenopathy: None. Pelvic viscera: The bladder, uterus, and adnexa are normal as visualized. Skeletal structures: The skeletal structures are osteopenic. There is moderate lumbosacral spondylosis and scoliosis. No lytic or blastic lesions are seen. IMPRESSION: 1. There is advanced colonic diverticulosis without CT evidence of acute diverticulitis. 2. There is mild right-sided hydronephrosis. The right ureter is normal in caliber and this likely represents a mild UPJ type obstruction. The right kidney enhances homogeneously. 3. There is mild nonspecific urothelial thickening and enhancement in the right renal pelvis. Correlation with clinical findings and urinalysis will be required. 4. Cholelithiasis. 5. Additional changes as above. Electronically signed by: Rene Hickey M.D. 10/25/2016 7:12 AM Vaccinations: None Consultations: GI- Angélica SAHW, Dr. Dent Pending Studies/Follow-Up: Repeat blood work: CBC on follow up with primary care physician, Ff up BP and Right Hydronephrosis; Aspirin on hold Medication Reconciliation New Medications: Omeprazole (Prilosec) 40 Mg Cap 40 MG PO DAILY for 30 Days, #30 CAP Continued Medications: Cranberry (Vaccinium Macrocarp (Cranberry) 500 Mg Cap 1 CAP PO DAILY Fluoxetine (Prozac) 20 Mg Cap 20 MG PO DAILY Fluticasone Propionate (Nasal) (Flonase Allergy Relief) 50 Mcg/Act Spr 1 SPRAY CHLOÉ DAILY PRN for Nasal Congestion Discontinued Medications: Aspirin (Aspirin Ec) 81 Mg Tab 81 MG PO DAILY Omeprazole (Prilosec) 20 Mg Capcr 20 MG PO DAILY Admission Information HPI (per Admitting provider): This is a healthy 86 year old female with past medical hx of Asthma/HTN presents to the Emergency Room with episodes of dark stool started 3 days back ( since Sat ) As per pt's daughter, pt was having pressure like symptoms /cramps in her lower abdomen three days ago, followed by bright red blood in the toilet and then a loose bowel movement. Daughter states the following day, the patient experienced darker "clotting" blood in her stool. [place] dizzy and weak Daughter took the patient to [facility] on Sunday Examination revealed no hemorrhoids were identified, patient's hemoglobin was 11.7. Pt was seen at [facility] today Hemoglobin is 8 pt continues to have blood in her stool, feels weakness, dizziness, and pressure in her rectum Pt was advised to go to the ED Patient takes a baby aspirin once a day Did not take her Aspirin today no prior hx of GI bleed not on any other blood thinners No recent intake of NSAID's ( except for aspirin 81 mg- 2 days back) The patient denies chest pain and shortness of breath. No nausea or vomiting pt remains hemodynamically stable Rectal exam in ED by ER attending shows melanotic stool in rectal volt in the ED initial vitals noted : Last 8 Hrs Date Time Temp Pulse Resp B/P Pulse Ox O2 Delivery O2 Flow Rate FiO2 10/24/16 20:27 85 18 153/70 98 Room Air 10/24/16 19:12 82 10/24/16 18:53 96 Room Air 10/24/16 18:52 89 18 138/82 95 Room Air 10/24/16 18:36 36.7 87 18 170/79 95 Room Air Hospital Course RECTAL BLEEDING Likely lower GI bleeding due to diverticular bleed; less likely upper GI bleed ( although PUD considered given ASA and ibuprofen use) Presented with initial red blood per rectum then melena, Hg decreased from 11's- 8's as outpatient -- CT a/p- advanced colonic diverticulosis, No evidence of acute diverticulitis ; mild R sided hydronephrosis 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, R kidney enhances homogenously; mild nonspecific urothelial thickening and enhancement R renal pelvis; cholelithiasis -- no recurrence of melena Was on IV PPI during hospitalization; Hg stable during admission (9.2->9.7), no blood transfusion given GI consulted No plan for endoscopy at this point; would refer back to GI if develops recurrent bleeding, abdominal pain, N/V Continue to hold aspirin until PCP follow up; was on ASA for hx of possible TIA Advised to avoid NSAIDs will be d/c on omeprazole 40 mg daily repeat CBC on follow up HYPERTENSION BP is moderately elevated intermittently throughout hospitalization asymptomatic Monitor BP as outpatient MILD R HYDRONEPHROSIS CT a/p showed mild R sided hydronephrosis 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 Thornton in [place] on SundayOctober 30 at 9 :40 am Patient seen in collaboration with Dr. Israel. Total time spent on discharge = 40 minutes This includes examination of the patient, discharge planning, medication reconciliation, and communication with other providers. Discharge Instructions Discharge Instructions Date of Service Oct 26, 2016. Admission Reason for Admission: Gi Bleed Discharge Discharge Diagnosis / Problem: GI bleed Discharge Goals Goal(s): Decrease discomfort, Diagnostic testing, Therapeutic intervention Activity Recommendations Activity Limitations: as noted below (gradually increase activity as tolerated) . Instructions / Follow-Up Instructions / Follow-Up Please take all medications as prescribed. Please do not take baby aspirin until otherwise advised by your primary care doctor. Please avoid taking any NSAID's (Non-Steroidal Anti-Inflammatory Drug) including ibuprofen. Call Primary Care Physician or return to ER immediately if with recurrence of symptoms You have a follow up appointment with Dr. Thornton in [place] on SundayOctober 30 at 9:40 am. It was a pleasure taking care of you! Call if you have any questions or problems. You can reach a [facility] hospitalist on duty at [facility] 24 hours a day by calling [phone]. Take care of yourself. Marija Lion PA-C [facility] Hospitalist Current Hospital Diet Patient's current hospital diet: Regular Diet Discharge Diet Recommended Diet: AHA Diet (Heart Healthy) (Please avoid nuts and seeds. ) Pending Studies Studies pending at discharge: yes List of pending studies: Repeat Bloodwork: CBC on follow up with Primary Care Physician Medical Emergencies . Who to Call and When: Medical Emergencies: If at any time you feel your situation is an emergency, please call 911 immediately. . Non-Emergent Contact Non-Emergency issues call your: Primary Care Provider Call Non-Emergent contact if: you have a fever, you have any medication questions . Past History Medical & Surgical History: (1) Hypertension (2) GI bleed (3) Depression (4) Dyslipidemia (5) Osteoarthritis (6) GERD (gastroesophageal reflux disease) (7) Osteoporosis (8) History of breast lump/mass excision (9) History of cataract surgery (10) H/O colonoscopy . "Provider Documentation" section prepared by Marija Lion. VTE Core Measure Inpt VTE Proph given/why not?: Latisha Ha, SCD's Additional Copies To Holden Thornton M.D.
--- NOTE | 2016-10-27 18:29 | EDITING REQUIRED CODING QUERY ---
ANEMIA Dear Dr. Israel, To promote full compliance with coding requirements relating to patient care, physician participation is requested in all cases of circle saw operator uncertainty. Please assist us with the question(s) below: In responding to this query, please exercise your independent professional judgement. The fact that a question is asked does not imply that any particular answer is desired or expected. We appreciate your clarification on this issue. Coding Question(s): Please specify the known or suspected type by placing an "X" within the parenthesis (x). If other, please document type. Examples are: (X ) Acute blood loss anemia ( ) Acute Postoperative blood loss anemia ( ) Acute postoperative anemia due to dilutional fluids ( ) Chronic blood loss anemia ( ) Anemia of chronic disease ( ) Iron deficient anemia ( ) Anemia, unspecified or other ( ) Other: (please specify) ( ) Unable to determine Medical Documentation: Patient is a 86 year old female w initially BRBPR, and then had darker colored stools w clots, anemia w Hgb down to 9, baseline 13. Thank you for your time. Jenna Zayas, ZMT OPERATOR
== END 2016-10-26 15:19 | disposition home or self-care (01) | DRG 378 ==
LOC: ENRESERVDT → ENRESERVTM → C.EDB 18:31 → C.MED 20:50
PROVIDERS: ADMIT Hospitalist; ATTEND Internal Medicine
DX: K62.5 Hemorrhage of anus and rectum (principal); N13.30 Unspecified hydronephrosis; D62 Acute posthemorrhagic anemia; J45.909 Unspecified asthma, uncomplicated; K57.31 Diverticulosis of large intestine without perforation or abscess with bleeding; I10 Essential (primary) hypertension; F32.9 Major depressive disorder, single episode, unspecified; E78.5 Hyperlipidemia, unspecified; M81.0 Age-related osteoporosis without current pathological fracture; M19.90 Unspecified osteoarthritis, unspecified site; K21.9 Gastro-esophageal reflux disease without esophagitis; R53.1 Weakness; R42 Dizziness and giddiness; K29.71 Gastritis, unspecified, with bleeding; Z87.891 Personal history of nicotine dependence; Z86.73 Personal history of transient ischemic attack (TIA), and cerebral infarction without residual deficits; Z79.82 Long term (current) use of aspirin; Z79.899 Other long term (current) drug therapy; Z79.51 Long term (current) use of inhaled steroids